=== PATIENT | female | born 1975 | race Caucasian/White ===

== ENCOUNTER 2020-11-18 11:17 | Emergency (ER) | payer BC, OTHER ==
[2020-11-18 11:38] LABS: Glucose,Whole Blood 113 mg/dL (75-99)
--- NOTE | 2020-11-18 11:44 | ED ---
General Adult HPI - General Chief complaint: Neuro Symptoms/Deficit Stated complaint: lt sided numbness Time Seen by Provider: 11/18/20 11:25 Source: patient Mode of arrival: ambulatory Limitations: no limitations - History of Present Illness Initial comments: Dictation was produced using [employer] dictation software. please excuse any grammatical, word or spelling errors. This patient was cared for during a federal and state declared [facility] secondary to Covid 19 Chief Complaint: 45-year-old female with sensory changes on the left side History of Present Illness: Is a 45-year-old female proximal arm prior to arrival she began experiencing numbness in her left middle finger. She states that symptoms progressed to her left hand or left upper extremity. Patient then noted that her left leg also felt numb along with her left face. Patient states that her symptoms are slightly improved however not completely back to normal. Patient has no other complaints at this time. Denies any weakness. has bedside reports that she does not have any facial asymmetry. She has no medical problems. She does not claim medications regular basis. The ROS documented in this emergency department record has been reviewed and confirmed by me. Those systems with pertinent positive or negative responses have been documented in the HPI. All other systems are other negative and/or noncontributory. PHYSICAL EXAM: General Impression: Alert and oriented x3, not in acute distress HEENT: Normocephalic atraumatic, extra-ocular movements intact, pupils equal and reactive to light bilaterally, mucous membranes moist. Cardiovascular: Heart regular rate and rhythm Chest: Able to complete full sentences, no retractions, no tachypnea Abdomen: abdomen soft, non-tender, non-distended, no organomegaly Musculoskeletal: Pulses present and equal in all extremities, no peripheral edema Motor: no focal deficits noted Neurological: CN II-XII grossly intact, no focal motor, sensory changes to light touch of the left upper face, left hand and left leg. NIH of 1-2 Skin: Intact with no visualized rashes Psych: Normal affect and mood ED course: 45 yo female presents today with acute onset sensory changes to the left side of the body. Vital signs upon arrival are within acceptable limits. Code stroke paged. Patient had TPA candidate at this time given that her symptoms are mild. 11:50 AM: Case discussed with Dr. De Luna's nurse practitioner over the phone. They will review the images and make further recommendations. EKG interpretation: Ventricular rate 80, normal sinus rhythm, CT interval 146, QRS 80, QTc 459. No CT prolongation, no QTC prolongation, no ST or T-wave changes noted. Overall, this EKG is unremarkable Laboratory evaluation obtained. CBC, coag panel, metabolic panel is unrem arkable. Cardiac enzymes negative. Computed tomography scan of the brain shows no acute processes. CT angios the head and neck shows no acute processes. No large vessel occlusions. Images were reviewed by Dr. De Luna who recommended no TPA or endovascular intervention. He recommended MRI, statins Results were discussed with patient at approximately 12:55 PM. She is also reevaluated and reports significant improvement of her symptoms. It was discussed that she be admitted for MRI and stroke evaluation by neurologist. She declined patient understands that her symptoms could progress causing permanent neurologic disability. Case is discussed with her primary care doctor Sophia who is aware patient case. She understands that the workup is not complete and that she may have a small stroke that is only detectable by MRI. Patient given aspirin. - Related Data Home Medications Medication Instructions Recorded Confirmed No Known Home Medications 11/18/20 11/18/20 Allergies Allergy/AdvReac Type Severity Reaction Status Date / Time No Known Allergies Allergy Verified 11/18/20 12:19 Review of Systems ROS Statement: Those systems with pertinent positive or pertinent negative responses have been documented in the HPI. ROS Other: All systems not noted in ROS Statement are negative. Past Medical History Past Medical History: No Reported History History of Any Multi-Drug Resistant Organisms: None Reported Additional Past Surgical History / Comment(s): breast reduction, R hand Past Psychological History: No Psychological Hx Reported Smoking Status: Current every day smoker Past Alcohol Use History: Occasional Past Drug Use History: None Reported General Exam Limitations: no limitations Course Vital Signs 11/18/20 11/18/20 11/18/20 11:19 11:36 12:10 Temperature 98.3 F 99.2 F 98 F Pulse Rate 93 82 76 Respiratory 18 18 18 Rate Blood Pressure 142/84 116/72 O2 Sat by Pulse 100 98 97 Oximetry 11/18/20 11/18/20 11/18/20 12:25 12:40 12:55 Temperature 98.5 F 98.4 F 98 F Pulse Rate 75 69 74 Respiratory 18 16 18 Rate Blood Pressure 114/63 116/50 122/71 O2 Sat by Pulse 99 98 Oximetry Medical Decision Making - Lab Data Result diagrams: 11/18/20 11:43 11/18/20 11:43 Lab Results 11/18/20 11/18/20 11/18/20 Range/Units 11:37 11:43 11:43 WBC 5.2 (3.8-10.6) k/uL RBC 4.68 (3.80-5.40) m/uL Hgb 13.8 (11.4-16.0) gm/dL Hct 42.2 (34.0-46.0) % MCV 90.2 (80.0-100.0) fL MCH 29.5 (25.0-35.0) pg MCHC 32.7 (31.0-37.0) g/dL RDW 13.1 (11.5-15.5) % Plt Count 200 (150-450) k/uL MPV 9.3 Neutrophils % 61 % Lymphocytes % 30 % Monocytes % 6 % Eosinophils % 1 % Basophils % 1 % Neutrophils # 3.2 (1.3-7.7) k/uL Lymphocytes # 1.5 (1.0-4.8) k/uL Monocytes # 0.3 (0-1.0) k/uL Eosinophils # 0.0 (0-0.7) k/uL Basophils # 0.0 (0-0.2) k/uL PT 10.1 (9.0-12.0) sec INR 1.0 (<1.2) APTT 24.4 (22.0-30.0) sec Sodium (137-145) mmol/L Potassium (3.5-5.1) mmol/L Chloride (98-107) mmol/L Carbon Dioxide (22-30) mmol/L Anion Gap mmol/L BUN (7-17) mg/dL Creatinine (0.52-1.04) mg/dL Est GFR (CKD-EPI)AfAm (>60 ml/min/1.73 sqM) Est GFR (CKD-EPI)NonAf (>60 ml/min/1.73 sqM) Glucose (74-99) mg/dL POC Glucose (mg/dL) 113 H (75-99) mg/dL POC Glu [employer] Site Supervisor ID McNeice, Sera Calcium (8.4-10.2) mg/dL Total Bilirubin (0.2-1.3) mg/dL AST (14-36) U/L ALT (4-34) U/L Alkaline Phosphatase (38-126) U/L Troponin I (0.000-0.034) ng/mL Total Protein (6.3-8.2) g/dL Albumin (3.5-5.0) g/dL 11/18/20 11/18/20 Range/Units 11:43 11:43 WBC (3.8-10.6) k/uL RBC (3.80-5.40) m/uL Hgb (11.4-16.0) gm/dL Hct (34.0-46.0) % MCV (80.0-100.0) fL MCH (25.0-35.0) pg MCHC (31.0-37.0) g/dL RDW (11.5-15.5) % Plt Count (150-450) k/uL MPV Neutrophils % % Lymphocytes % % Monocytes % % Eosinophils % % Basophils % % Neutrophils # (1.3-7.7) k/uL Lymphocytes # (1.0-4.8) k/uL Monocytes # (0-1.0) k/uL Eosinophils # (0-0.7) k/uL Basophils # (0-0.2) k/uL PT (9.0-12.0) sec INR (<1.2) APTT (22.0-30.0) sec Sodium 136 L (137-145) mmol/L Potassium 4.1 (3.5-5.1) mmol/L Chloride 105 (98-107) mmol/L Carbon Dioxide 22 (22-30) mmol/L Anion Gap 9 mmol/L BUN 16 (7-17) mg/dL Creatinine 0.63 (0.52-1.04) mg/dL Est GFR (CKD-EPI)AfAm >90 (>60 ml/min/1.73 sqM) Est GFR (CKD-EPI)NonAf >90 (>60 ml/min/1.73 sqM) Glucose 104 H (74-99) mg/dL POC Glucose (mg/dL) (75-99) mg/dL POC Glu Security Site Supervisor ID Calcium 9.3 (8.4-10.2) mg/dL Total Bilirubin 0.7 (0.2-1.3) mg/dL AST 21 (14-36) U/L ALT 12 (4-34) U/L Alkaline Phosphatase 68 (38-126) U/L Troponin I <0.012 (0.000-0.034) ng/mL Total Protein 7.5 (6.3-8.2) g/dL Albumin 4.6 (3.5-5.0) g/dL Disposition Clinical Impression: Sensory deficit, left Disposition: HOME SELF-CARE Condition: Fair Instructions (If sedation given, give patient instructions): Stroke (DC) Additional Instructions: Today you were evaluated for strokelike symptoms. Your workup so far is negative however he may have suffered a small stroke that can only be seen on MRI. Please follow up with her primary care doctor. Seek immediate medical attention if her symptoms worsen. Is patient prescribed a controlled substance at d/c from ED?: No Referrals: Ann Cortes MD [Primary Care Provider] - 1-2 days Time of Disposition: 13:09
[2020-11-18 12:00] LABS: Basophils % (A) 1 %; Eosinophils % (A) 1 %; HCT 42.2 % (34.0-46.0); HGB 13.8 gm/dL (11.4-16.0); Lymphocytes # (A) 1.5 k/uL (1.0-4.8); Lymphocytes % (A) 30 %; MCH 29.5 pg (25.0-35.0); MCHC 32.7 g/dL (31.0-37.0); MCV 90.2 fL (80.0-100.0); Mean Platelet Volume 9.3; Monocytes # (A) 0.3 k/uL (0-1.0); Monocytes % (A) 6 %; Neutrophils # (A) 3.2 k/uL (1.3-7.7); Neutrophils % (A) 61 %; Platelet Count 200 k/uL (150-450); RBC 4.68 m/uL (3.80-5.40); RDW 13.1 % (11.5-15.5); WBC 5.2 k/uL (3.8-10.6)
--- NOTE | 2020-11-18 12:04 | CT ---
EXAMINATION TYPE: CT brain wo con for TPA DATE OF EXAM: 11/18/2020 COMPARISON: None HISTORY: 45-year-old female Neuro deficit, acute, stroke suspected TECHNIQUE: Examination was done in axial plane without intravenous contrast. Coronal and sagittal r econstructions performed. CT DLP: 1021 mGycm Automated exposure control for dose reduction was used. FINDINGS: There is no evidence of acute intracranial hemorrhage, acute ischemic changes, mass, mass-effect, or extra-axial fluid collection. There is no effacement of cerebral sulci or basal subarachnoid cister ns. There is no hydrocephalus. There is no midline shift. Ahn-white matter distinction is preserv ed. Trace mucosal thickening left maxillary sinus. Slight leftward nasal septal deviation. Mastoid air ce lls are pneumatized. Orbits and globes are intact. IMPRESSION: No acute intracranial abnormality seen.
[2020-11-18 12:09] LABS: ALT 12 U/L (4-34); AST 21 U/L (14-36); African American GFR (CKD) >90 (>60 ml/min/1.73 sqM); Albumin 4.6 g/dL (3.5-5.0); Alkaline Phosphatase 68 U/L (38-126); Anion Gap 9 mmol/L; Blood Urea Nitrogen 16 mg/dL (7-17); Calcium 9.3 mg/dL (8.4-10.2); Carbon Dioxide 22 mmol/L (22-30); Chloride 105 mmol/L (98-107); Glucose 104 mg/dL (74-99); Non-African American GFR(CKD) >90 (>60 ml/min/1.73 sqM); Potassium 4.1 mmol/L (3.5-5.1); Sodium 136 mmol/L (137-145); Total Bilirubin 0.7 mg/dL (0.2-1.3); Total Protein 7.5 g/dL (6.3-8.2)
[2020-11-18 12:19] LABS: Partial Thromboplastin Time 24.4 sec (22.0-30.0); Prothrombin Time 10.1 sec (9.0-12.0)
--- NOTE | 2020-11-18 12:51 | CT ---
EXAMINATION TYPE: CT angio head neck DATE OF EXAM: 11/18/2020 COMPARISON: CT brain same day HISTORY: 45-year-old female code stroke, Neuro deficit, acute, stroke suspected TECHNIQUE: Contiguous axial scanning of the head and neck performed with IV Contrast, patient injecte d with 65 mL of Isovue 370. Coronal and sagittal MIP reconstructions performed. 3-D reconstructions g enerated on a dedicated independent workstation. CT DLP: 370.8 mGycm Automated exposure control for dose reduction was used. FINDINGS: NECK: Biapical pleural-parenchymal scarring. Conventional arch vessel branching anatomy. Vertebral arteries are codominant and patent throughout the course. The right common and internal carotid arteries are widely patent. The left common and internal carotid arteries are widely patent. HEAD: The vertebral and basilar arteries are patent. 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 The internal carotid arteries are patent as is the remainder of the anterior circulation. No aneurysmal change seen. IMPRESSION: 1. NECK: WIDELY PATENT VERTEBRAL AND CAROTID ARTERIES OF THE NECK. 2. HEAD: NO LARGE VESSEL INTRACRANIAL ARTERIAL OCCLUSION, SIGNIFICANT STENOSIS, OR ANEURYSMAL CHANGE IS SEEN.
[2020-11-18 13:01] VITALS: BP 122/71; PULSE 74; RESP 18; TEMP 98
[2020-11-18] MEDS ORDERED: ASPIRIN 81 MG PO STA (13:07)
== END 2020-11-18 13:32 | disposition home or self-care (01) ==
LOC: EC 11:17
DX: R44.8 Other symptoms and signs involving general sensations and perceptions (principal); F17.200 Nicotine dependence, unspecified, uncomplicated
CPT/HCPCS: 36415; 80053; 84484; 85025; 85610; 85730; 70496; 70450; 70498; 99284; Q9967; 93005